=== PATIENT | male | born 1975 | race African-American/Black ===

== ENCOUNTER 2017-07-16 11:42 | Emergency (ER) | payer SELFPAY ==
--- NOTE | 2017-07-16 12:31 | EDM.PDOC ---
ED HPI GENERAL MEDICAL PROBLEM - General Chief Complaint: Skin Complaint Stated Complaint: ABSCESS ON BACK Time Seen by Provider: 07/16/17 12:05 Source of Information: Reports: Patient History Limitations: Reports: No Limitations - History of Present Illness INITIAL COMMENTS - FREE TEXT/NARRATIVE: 41-year-old male presents for evaluation and treatment of abscess to his lower back. Patient reports his first about 6 days ago. Reports pain associated with the area. States it did open and is draining a small bit. Reports pain is worse with sitting and is also expressing pain with walking. No [id number] medications prior to arrival near. No fevers, chills, nausea or vomiting. Patient is from the surgery. 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 He is going to [place] with plans to go home immediately. 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: advil pm Lower Back Pain Score (Numeric/FACES): 5 - Related Data Allergies Allergy/AdvReac Type Severity Reaction Status Date / Time No Known Allergies Allergy Verified 07/16/17 11:56 Home Meds: Home Meds Doxycycline [Vibramycin] 100 mg PO BID #20 cap 07/16/17 [Rx] metroNIDAZOLE [Flagyl] 500 mg PO Q8H #30 tab 07/16/17 [Rx] Past Medical History - Past Health History Medical/Surgical History: Denies Medical/Surgical History Social & Family History - Tobacco Use Smoking Status *Q: Current Every Day Smoker Years of Tobacco use: 15 Packs/Tins Daily: 0.7 - Caffeine Use Caffeine Use: Reports: Tea - Recreational Drug Use Recreational Drug Use: No ED ROS GENERAL - Review of Systems Review Of Systems: See Below Constitutional: Denies: Fever, Chills GI/Abdominal: Denies: Nausea, Vomiting Musculoskeletal: Reports: Back Pain ED EXAM, SKIN/RASH Exam: See Below Exam Limited By: No Limitations General Appearance: Alert, WD/WN, No Apparent Distress, Obese Respiratory/Chest: No Respiratory Distress, Lungs Clear, Normal Breath Sounds Cardiovascular: Normal Peripheral Pulses, Regular Rate, Rhythm, No Murmur Back Exam: Normal Inspection Neurological: Alert, Oriented, Normal Cognition Psychiatric: Normal Affect, Normal Mood Skin: Warm, Dry, Normal Color Location, Skin: Other (Pilonidal cyst present, approximately 8 cm in diameter area of induration) Characteristics: No: Erythematous Associated features: Warmth, Tenderness, Swelling, Induration Course - Vital Signs Last Recorded V/S: Last Vital Signs Temp 36.4 C 07/16/17 11:55 Pulse 99 07/16/17 11:55 Resp 20 07/16/17 11:55 BP 150/93 H 07/16/17 11:55 Pulse Ox 96 07/16/17 11:55 - Re-Assessments/Exams Free Text/Narrative Re-Assessment/Exam: 07/16/17 12:27 Patient has a pilonidal cyst. I offered to contact the surgeon tab taken to the OR, he states he would like to go home and have this done in [facility] instead of being here in [place] for this. Discussed with Dr. Reed. We will start on antibiotics, Flagyl and doxycycline. Discharge instructions as documented. Departure - Departure Time of Disposition: 12:27 Disposition: Home, Self-Care 01 Condition: Fair Clinical Impression: Pilonidal abscess - Discharge Information Prescriptions: Doxycycline [Vibramycin] 100 mg PO BID #20 cap metroNIDAZOLE [Flagyl] 500 mg PO Q8H #30 tab Instructions: Pilonidal Cyst Referrals: PCP,None [Primary Care Provider] - Forms: ED Department Discharge Additional Instructions: [id number] Tylenol or Motrin as needed for pain relief. Take the doxycycline 1 tab twice a day. Take the Flagyl 1 tab 3 times a day. Recommend taking these with some food. Follow-up with a surgeon as soon as you are able to have the pilonidal cyst drained. Please return to the ER if your symptoms change or worsen.
== END 2017-07-16 12:38 | disposition home or self-care (01) ==
LOC: JD.ED 11:42
DX: L05.01 Pilonidal cyst with abscess (principal); F17.210 Nicotine dependence, cigarettes, uncomplicated
CPT/HCPCS: 99283